=== PATIENT | male | born 1955 | race Caucasian/White ===

== ENCOUNTER → 2016-11-12 | Outpatient (CLI) | payer OTHER ==
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
--- NOTE | 2016-11-12 19:31 | HKNOTE ---
DATE OF SERVICE: 11/12/[address] James, Your patient, Preston Vides, was seen by us today, complaining of pain in his right hip. He has fairly advanced degenerative osteoarthritis of the right hip, but has some remaining superior joint space. I anticipate that he will need to have hip replacement in perhaps 18 months to 2 years, but I could be completely wrong with my prognostication. He is being treated conservatively at this time. I gave him a cortisone injection into the right hi p joint, and will see how he does with that. With warmest regards, Dictated By: JACEY HAHN/EUGENE Conf#: [id number] DID#: [id number]
--- NOTE | 2016-11-12 19:37 | HKNOTE ---
DATE OF SERVICE: 11/12/[address] Vergara, Your patient, Preston Vides, was seen by us today complaining of pain in his right hip. He has fairly-advanced degenerative osteoarthritis of the right hip, but has some remaining superior joint space. I anticipate that he will need to have hip replacement in perhaps 18 months to 2 years, but I could be completely wrong with prognostication. He is being treated conservatively at this time. I gave him a cortisone injection into the right hi p joint, and we will see how does on that. With warmest regards, Dictated By: JACEY HAHN/EUGENE Conf#: [id number] DID#: [id number]
--- NOTE | 2016-11-13 11:12 | RADRPT ---
PROCEDURE: Right hip series CLINICAL INDICATION: PAIN TECHNIQUE: AP and frog lateral views of the right hip were performed. COMPARISON: None. FINDINGS: There is moderate degenerative joint disease of the right hip worse along the medial aspect of the a cetabular region. There is no evidence of acute fracture or dislocation. No focal bony blastic or lytic lesions. Soft tissues are unremarkable. IMPRESSION: Moderate degenerate joint disease right hip without evidence of acute fracture or dislocation. RPTAT:AAJJ Physician Calvin Date Time Electronically viewed and signed by Physician Calvin on 11/13/2016 11:12 /
== END | disposition home or self-care (01) ==
LOC: HKI 13:41
DX: M16.0 Bilateral primary osteoarthritis of hip (principal)
CPT/HCPCS: 20610; 73502; G0463; J3301

== ENCOUNTER → 2017-04-15 | Outpatient (CLI) | payer OTHER ==
--- NOTE | 2017-05-02 08:18 | HKNOTE ---
DATE OF SERVICE: 04/15/2017 CHIEF COMPLAINT: Pain in the right hip diagnosed with osteoarthritis of the right hip. DISCUSSION: The patient had excellent improvement of his symptoms of his right hip from the injection given the last visit. He is now requesting to repeat the injection. PROCEDURE: Under sterile conditions, he is given an injection of 2 mL of Kenalog and 6 mL of 2% lidocaine in the right hip. He will be seen again as necessary. Dictated By: Kyle Erwin MD /nila/edmond /Document#: [id number]
== END | disposition home or self-care (01) ==
LOC: HKI 13:51
DX: M16.11 Unilateral primary osteoarthritis, right hip (principal)
CPT/HCPCS: 20610; G0463

== ENCOUNTER → 2017-08-05 | Outpatient (CLI) | payer OTHER ==
--- NOTE | 2017-08-06 04:12 | HKNOTE ---
DATE OF SERVICE: 08/05/2017 The patient comes in requesting repeat cortisone injection. The cortisone injections give him excel lent relief. His last injection was about 3 months ago, in early April. He requested a repeat corti sone injection. PHYSICAL EXAMINATION: The patient has pain in the left groin and right groin at all limits of motio n. MANAGEMENT: Under sterile conditions, given injection of 2 mL of Kenalog and 6 mL of 2% lidocaine i nto the right hip, and he will be seen again as necessary. Dictated By: JACEY HAHN/EUGENE Conf#: [id number] DID#: [id number]
== END | disposition home or self-care (01) ==
LOC: HKI 09:28
DX: M25.551 Pain in right hip (principal)
CPT/HCPCS: 20610; G0463